=== PATIENT | female | born 1950 | race Caucasian/White ===

== ENCOUNTER 2021-10-16 10:39 | Day surgery (SDC) | payer MEDICARE, SELFPAY ==
[2021-10-16] VITALS (15 sets, daily range): BP systolic 106–134; BP diastolic 56–67; PULSE 47–66; RESP 12–16; TEMP 36.3–36.6; O2SAT 92–98; BMI 24.4
[2021-10-16] MEDS: LACTATED RINGERS 1000 ML 1,000 ML 100 ML IV (11:00)
[2021-10-16] MEDS: ACETAMINOPHEN 500 MG TABLET 1000 MG PO (11:02)
[2021-10-16] MEDS: SODIUM CHLORIDE 0.9 % (FLUSH) 10 ML SYRINGE IVF (11:15)
[2021-10-16] MEDS: OXYCODONE (CR) 10 MG TAB.ER.12H PO (11:18)
[2021-10-16] MEDS: MIDAZOLAM HCL 1 MG/ML inj IVP (11:55)
[2021-10-16] MEDS: fentaNYL 100 MCG/2 ML inj IVP (11:55)
--- NOTE | 2021-10-16 12:10 | W.PM.NB ---
Nerve Block Nerve Block Time Seen by Provider: 11:30 Date Seen: 10/16/21 Type of block requested by surgeon for post-operative analgesia: interscalene Side: right Time out performed: Yes Verification of patient name: Yes Verification of date of : Yes Site marking: site marked Name of person performing procedure: Leonard Continuous monitoring 1st: Vital Signs: Last Vital Signs Temp 98 F 10/16/21 11:39 Pulse 50 L 10/16/21 11:39 Resp 16 10/16/21 11:39 BP 132/62 10/16/21 11:39 Procedure Ultrasound guided. Images saved: Yes Medications given in 5ml increments after negative aspiration: Ropivicaine %: 0.5 mL: 20 Needle gauge: 22 Decadron (mg): 10 Precedex (mg): 0.02 Patient tolerated procedure well: Yes Additional comments: Needle noted adjacent to nerve
[2021-10-16] MEDS: SODIUM CHLORIDE IRRIG SOLUTION 3,000 ML, EPINEPHrine 1 MG IRRIGATION (14:16)
[2021-10-16] MEDS: LACTATED RINGERS 1000 ML 1,000 ML 35 ML IV ×2 (14:56→17:37)
--- NOTE | 2021-10-16 15:21 | P.ORPRC_ITS ---
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 FOOTWEAR: Teri Brumfield PA-C PREOPERATIVE DIAGNOSIS: Right shoulder massive rotator cuff tear, AC joint arthrosis, biceps tendinopathy POSTOPERATIVE DIAGNOSIS: Right shoulder massive rotator cuff tear, AC joint arthrosis, biceps tendinopathy NAME OF OPERATION: Right shoulder arthroscopic subacromial decompression, distal clavicle excision, mini open rotator cuff repair, biceps tenodesis ANESTHESIA: Supraclavicular block plus general endotracheal ESTIMATED BLOOD LOSS: 5 mL COMPLICATIONS: None SPECIMENS: None DRAINS: None PREOPERATIVE ANTIBIOTICS: Ancef 1 g INDICATIONS: The patient is a 71-year-old female with a history of right shoulder pain secondary to the above diagnoses. Despite appropriate non operative management, they continue to have symptoms. Operative intervention was recommended. The risks, benefits and expected outcomes were discussed in detail. These included but were not limited to: Infection, bleeding, injury to blood vessel or nerve, venous thromboembolism. All questions were answered to their satisfaction. A modifier 22 should be added to this case. The size of the tear was massive and markedly retracted. This made it quite difficult to obtain our final repair and more than doubled the time typically required to repair a rotator cuff tear. PROCEDURE: A supraclavicular block was placed by Anesthesia. General anesthesia was administered. The patient was placed in the high beach chair position. The right shoulder was prepped and draped in the usual sterile fashion. The glenohumeral joint was infiltrated with 20 mL of normal saline with epinephrine. The posterior portal was established, the arthroscope was introduced. The anterior portal was established, Diagnostic arthroscopy was performed with findings as follows: The biceps has a marked amount of intra- articular tendinopathy and is subluxed into the subscap tear. The anterior, posterior and superior labrum are normal. Articular surfaces on the humeral head and glenoid shows diffuse grade 2/3 change on both sides of the joint. There are no loose bodies. There is a full-thickness tear of the supraspinatus and infraspinatus with retraction to the glenoid rim. There is longitudinal splitting of the subscap. The biceps was tenotomized with the arthroscopic scissors. The stump was resected with the shaver. The arthroscope was placed in the subacromial space, the lateral portal was established. The Arthrex Allport was used to dissect the acromion free. The CA ligament was recessed off the anterior acromion, the AC joint was exposed. The acromioplasty was performed with the bur in the posterior portal. The bur was then placed in the lateral portal and the lateral and anterior aspect of the acromion were resected. The undersurface of the distal clavicle was resected through the lateral portal. Finally, the bur was placed in the anterior portal and the remainder of the distal clavicle was resected for a total of 10 mm. An accessory anterolateral portal was placed. The subacromial/subdeltoid bursa was aggressively debrided. There is a full-thickness tear of the supraspinatus and infraspinatus with retraction to the glenoid rim. The rotator cuff was mobilized with Morteza Huizar and tissue liberator. A fiber link was placed in the leading edge of the cuff x3. Arthroscopic instruments were removed. The accessory anterolateral portal was extended proximally and distally, subcutaneous dissection was taken with electrocautery to the deltoid. The deltoid was divided in line with its fibers. The static retractor was placed. The subacromial/subdeltoid bursa was debrided with the Mejias scissors. The greater tuberosity was debrided to punctate bleeding bone using the arthroscopic bur. Three Arthrex BioComposite SwiveLock anchors were placed just off the articular surface. Both limbs of the FiberWire and fiber tape were passed using the scorpion. Two margin convergence sutures were placed. We tied the 2 central FiberWire sutures over the rotator cuff. We then proceeded with a lateral row of SwiveLock anchors x 3 crossing the FiberTape and incorporating the FiberWire and fiber link into each lateral row anchor. This provides a reasonable repair of the rotator cuff. Given the size of the tear and retraction we elected not to test the repair with the shoulder at 0? abduction. The wound was irrigated with normal saline off the pump. The deltoid was repaired with an 0 Vicryl in an interrupted [id number] fashion. Subcutaneous tissues were closed with a 3-0 Vicryl. Skin was closed with a 3-0 Monocryl in a subcuticular fashion. A dry dressing, polar care and sling were applied. Sponge and needle counts were correct x2. The patient tolerated the procedure well. There were no apparent complications. They were carefully transferred to the hospital bed and taken to the postanesthesia care unit in satisfactory condition. PLAN: The patient will be discharged to home. No active range of motion of the shoulder will be allowed for 6 weeks postoperatively. They can work on active range of motion of the elbow, wrist and fingers. They will follow up in the office next week for a wound check and an AP and transscapular Y-view of the shoulder prior to being seen. We will not plan to begin formal therapy and will plan to avoid external rotation until she is 6 weeks postop.
--- NOTE | 2021-10-16 15:35 | W.ANESCHARGE ---
Anesthesia Charges Start Date/Time Anesthesia Start Date: 10/16/21 Anesthesia Start Time: 12:15 Stop Date/Time Anesthesia Stop Date: 10/16/21 Anesthesia Stop Time: 15:24 Summary Emergency: No
--- NOTE | 2021-10-16 16:35 | W.ANESCHARGE ---
Anesthesia Charges Start Date/Time Anesthesia Start Date: 10/16/21 Anesthesia Start Time: 12:15 Stop Date/Time Anesthesia Stop Date: 10/16/21 Anesthesia Stop Time: 15:24 Summary Emergency: No Extremes of Age: Over [id number]-CPT [id number]
== END 2021-10-16 17:41 | disposition home or self-care (01) ==
PROVIDERS: Visit Provider Orthopaedic Surgery
PROC: (CPT 23412; principal; 2021-10-16 12:15)
DX: M75.121 Complete rotator cuff tear or rupture of right shoulder, not specified as traumatic (principal); M19.011 Primary osteoarthritis, right shoulder; M75.21 Bicipital tendinitis, right shoulder
CPT/HCPCS: 29826; 29824; 29828; 23412; 01630; 76942; 99100; A9270; C1713; J0171; J0330; J1100; J2250; J2704; J2795; J3010; J7120; L3670

== ENCOUNTER 2022-01-12 10:00 | Outpatient (RCR) | payer MEDICARE, SELFPAY ==
--- NOTE | 2021-12-29 15:23 | PT.OPEX ---
PT [facility] Eval PT [facility] Outpatient Eval Start: 12/29/21 15:18 Freq: Status: Active Protocol: Document 12/29/21 15:18 STEVEN (Rec: 12/29/21 15:21 STEVEN [id number]) E-signed By Felipe Tompkins DPT, MS Physical Therapy Outpatient Evaluation Insurance Information Recert Due Date 03/29/22 Insurance Name Medicare B Medical Diagnosis Status post R mini open rotator cuff repair, SAD, DCE, biceps tenotomy Treating Diagnosis R shoulder pain, decreased R shoulder AROM in all directions and R UE weakness. Subjective Subjective Pt is a 71 y.o. male who presents to therapy post-op R RCR, biceps tenotomy, shoulder debridement, DCE and SAD on . Pt was seen for 2-3 PT visits in [facility] but did not return for 2-3 visits after her first visit. At second visit PT believed something was wrong with her shoulder due to significant weakness and she was instructed to return to her surgeon. PA did not do any additional scans and provided her a new PT order to our clinic. Able to perform AROM with occasional clicking and popping and minimal sxs. Chief complaint is weakness. Original injury occurred when pt fell onto her shoulder after tripping on a parking barrier. Complex PMH of intestinal issues with multiple surgeries, several untreated abdominal hernias, osteoporosis, DM-II, HTN and depression. AGGR factors: lifting objects, carrying, pushing, pulling, opening jars and doors, sleeping. ALLEV factors: rest, ice, Advil. Pt hopes to learn exercises to strengthen her arm, returning for progressions as needed due to a $35 visit copay. Pain Comments 0-3/10 Current Work Status Retired Preferred Name [employer] Assessment Assessment/Impression Testing found significant R UE weakness but pt displays WFL AROM in all directions. R shoulder AROM: flex 170, ABD 145 deg, ER 85 deg, IR 55 deg. Negative open can testing with significant weakness with shoulder ER due to pt not beginning strengthening phase of PT. She responded well to introduction of RC and periscap strengthening, and progression of AAROM and AROM exercises with pt fatiguing quicjly with all activities today. She would benefit from continued skilled therapy to address these limitations. Primary Functional Limitations All activities with L UE, sleeping Plan of Care Rehabilitation Potential Good Physical Therapy Goals Long-term goals to be completed in 10 weeks: 1.Pt will be independent and compliant with HEP 2.Pt will report improved quality of sleep waking <2x per night due to R shoulder pain for >2 consecutive nights. 3.Pt will display improved R shoulder flex, ABD, ER and IR strength of >5/5 to lift objects into overhead cabinets and perform household cleaning activities. 4. 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 Coordination/Communication With Referral Source Treatment Plan/Direct Interventions Neuromuscular Re-ed, Therapeutic Exercises Frequency/Duration 1x per week for at least 6-10 visits, decreasing visit frequency as able. Patient Will Be Discharged From Therapy Completion of LTG(s),Skills Plateau,Independent w/HEP, Independently Progressing Evaluation Billing Untimed Code Treatment Minutes 24 Complexity Moderate Certification Information Initial Certification Date 12/29/21 Ending Certification Date 03/29/22 Provider Signature Shows Agreement With POC & Medical Necessity Physician Comment/Change Comment or Changes Physician NPI Number #
== END 2022-08-18 16:18 | disposition home or self-care (01) ==
PROVIDERS: Visit Provider Physician Assistant Surgical
DX: Z98.890 Other specified postprocedural states (principal); M25.511 Pain in right shoulder; Z51.89 Encounter for other specified aftercare
CPT/HCPCS: 97110; 97162